=== PATIENT | male | born 1975 | race Caucasian/White ===

== ENCOUNTER 2018-04-19 17:56 | Emergency (ER) | payer MEDICAID ==
[2018-04-19 18:29] VITALS: RESP 18; TEMP 99.4
--- NOTE | 2018-04-19 19:18 | ED PDOC ---
Arrival/HPI - General Historian: Patient - History of Present Illness Narrative History of Present Illness (Text): 04/19/18 19:10 42 year old male with PMH of hypertension, CAD s/p stent placed, diabetes, hypothroidism, hyperlipidemia presents to the Emergency department with headache and elevated blood pressure readings at home 170/100 despite compliance with his medications. Patient reports frontal headache, pressure like, no alleviating or worsening factors. Patient denied associated nausea, vomiting, visual changes, chest pain, shortness of breath, palpitations, cough, leg swelling, muscle weakness, urinary symptoms. Patient is following up with his PMD, last seen last month. His BP meds adjusted with no change in BP reading or the headache. PMD: Dr Delgado Time/Duration: > month Symptom Onset: Gradual Symptom Course: Unchanged Quality: Pressure Context: Home <Carl Nunez - Last Filed: 04/19/18 19:31> - General Historian: Patient - History of Present Illness Symptom Onset: Gradual Symptom Course: Unchanged Quality: Pressure Context: Home <Bull Luke - Last Filed: 04/19/18 22:03> - General Chief Complaint: High Blood Pressure Time Seen by Provider: 04/19/18 18:49 Past Medical History - Provider Review Nursing Documentation Reviewed: Yes - Infectious Disease Hx of Infectious Diseases: None - Cardiac Hx Cardiac Disorders: Yes Hx Hyperlipemia: Yes Hx Hypertension: Yes - Neurological Hx Headaches: Yes - HEENT Hx HEENT Disorder: No - Renal Hx Renal Disorder: No - Endocrine/Metabolic Hx Diabetes Mellitus Type 2: Yes Hx Hypothyroidism: Yes - Integumentary Hx Dermatological Disorder: No - Gastrointestinal Hx Gastrointestinal Disorders: Yes Hx Gastroesophageal Reflux: Yes - Genitourinary/Gynecological Hx Genitourinary Disorders: No - Psychiatric Hx Psychophysiologic Disorder: No Hx Substance Use: No - Anesthesia Hx Anesthesia: No <Carl Nunez - Last Filed: 04/19/18 19:31> Family/Social History - Physician Review Nursing Documentation Reviewed: Yes Family/Social History: No Known Family HX Smoking Status: Unknown If Ever Smoked Hx Alcohol Use: No Hx Substance Use: No <Carl Nunez - Last Filed: 04/19/18 19:31> Allergies/Home Meds <Carl Nunez - Last Filed: 04/19/18 19:31> <Bull Luke - Last Filed: 04/19/18 22:03> Allergies/Adverse Reactions: Allergies No Known Allergies Allergy (Verified 04/19/18 18:29) Home Medications: Home Meds Medication Instructions Recorded Confirmed Aspirin [Ecotrin] 81 mg PO DAILY 04/19/18 04/19/18 Atorvastatin [Lipitor] 20 mg PO DAILY 04/19/18 04/19/18 Cholecalciferol (Vitd3)/Vit K2 [D3 50,000 each PO QWK 04/19/18 04/19/18 + K2 Dots 1,000 Units Tab] Clopidogrel Bisulfate [Plavix] 75 mg PO DAILY 04/19/18 04/19/18 Furosemide [Lasix] 20 mg PO DAILY 04/19/18 04/19/18 Levothyroxine [Synthroid] 0.088 mg PO DAILY 04/19/18 04/19/18 Losartan/Hydrochlorothiazide 1 each PO DAILY 04/19/18 04/19/18 [Losartan-Hctz 100-25 mg Tab] MetFORMIN [glucOPHAGE] 1,000 mg PO BID 04/19/18 04/19/18 Metoclopramide [Reglan] 5 mg PO TID 04/19/18 04/19/18 Metoprolol Tartrate [Lopressor] 25 mg PO BID 04/19/18 04/19/18 Gtuqi-2-Jkal Ethyl Esters [OMEGA 3] 0 mg PO 04/19/18 Ranitidine HCl [Zantac 300] 300 mg PO DAILY 04/19/18 04/19/18 amLODIPine [Norvasc] 5 mg PO DAILY 04/19/18 04/19/18 Review of Systems - Physician Review All systems were reviewed & negative as marked: Yes - Review of Systems Constitutional: Normal. absent: Weight Change, Fevers, Night Sweats Eyes: Normal. absent: Vision Changes, Photophobia ENT: Normal. absent: Hearing Changes, Tinnitus, TMJ Pain Respiratory: Normal Cardiovascular: Normal. absent: Chest Pain, Palpitations, TELLO, Orthopnea Gastrointestinal: Normal Genitourinary Male: Normal. absent: Frequency, Hematuria Musculoskeletal: Normal. absent: Back Pain, Neck Pain Skin: Normal. absent: Rash Neurological: Headache. absent: Dizziness, Focal Weakness, Gait Changes, Speech Changes, Facial Droop, Disequilibrium, Seizure Endocrine: Normal. absent: Diaphoresis, Polyuria, Polydipsia Hemo/Lymphatic: Normal. absent: Adenopathy Psychiatric: Normal <Carl Nunez - Last Filed: 04/19/18 19:31> Physical Exam Vital Signs Reviewed: Yes Vital Signs Temp Pulse Resp BP Pulse Ox 04/19/18 18:25 99.4 F 96 H 18 157/96 H 99 Temperature: Afebrile Blood Pressure: Hypertensive Pulse: Regular Respiratory Rate: Normal Appearance: Positive for: Well-Appearing, Non-Toxic, Comfortable Pain Distress: Moderate Mental Status: Positive for: Alert and Oriented X 3 Finger Stick Blood Glucose: 97 - Systems Exam Head: Present: Atraumatic, Normocephalic Pupils: Present: PERRL Extroacular Muscles: Present: EOMI Conjunctiva: Present: Normal Ears: Present: Normal Mouth: Present: Moist Mucous Membranes Nose (External): Present: Atraumatic Nose (Internal): Present: Normal Inspection Neck: Present: Normal Range of Motion. No: MIDLINE TENDERNESS, JVD Respiratory/Chest: Present: Clear to Auscultation, Good Air Exchange. No: Respiratory Distress, Accessory Muscle Use Cardiovascular: Present: Regular Rate and Rhythm, Normal S1, S2. No: Murmurs, Rub Abdomen: Present: Normal Bowel Sounds. No: Tenderness, Distention Back: Present: Normal Inspection. No: CVA Tenderness Upper Extremity: Present: Normal Inspection. No: Cyanosis, Edema Lower Extremity: Present: Normal Inspection. No: Edema Neurological: Present: GCS=15, CN II-XII Intact, Speech Normal Skin: Present: Warm, Dry, Normal Color. No: Rashes Lymphatic: No: Cervical Adenopathy Psychiatric: Present: Alert, Oriented x 3, Normal Insight, Normal Concentration <Carl Nunez - Last Filed: 04/19/18 19:31> Vital Signs Temp Pulse Resp BP Pulse Ox 04/19/18 18:25 99.4 F 96 H 18 157/96 H 99 <Bull Luke - Last Filed: 04/19/18 22:03> Medical Decision Making ED Course and Treatment: 04/19/18 21:46 Case endorsed from Carl Gonzalez/ Dr. Rcihi Stoll Patient is a 42M w/ hypertensive w/ associated headache + nausea CBC/CMP mild anemia + hypokalemia + BUN/Cr ratio 25/1.3 EKG findings listed below TSH/T4 within normal limits Patient given Reglan KDur Findings suggest patient is dehydrated w/ elevated BUN vs Diabetic Nephropathy Symptoms improved; patient comfortable, voicing no complaints at time of re evaluation 2150 Encourage increased fluid intake Will discharge patient home w/ appropriate follow up w/ PMD Dr. Whiteside - Lab Interpretations Lab Results: Total Bilirubin 0.5 mg/dL (0.2-1.3) 04/19/18 19:59 AST 60 U/L (17-59) H 04/19/18 19:59 ALT 53 U/L (7-56) 04/19/18 19:59 Alkaline Phosphatase 74 U/L (38-126) 04/19/18 19:59 Total Protein 8.5 g/dL (5.8-8.3) H 04/19/18 19:59 Albumin 4.6 g/dL (3.0-4.8) 04/19/18 19:59 Globulin 3.9 gm/dL 04/19/18 19:59 Albumin/Globulin Ratio 1.2 (1.1-1.8) 04/19/18 19:59 Urine Color Yellow (YELLOW) 04/19/18 20:50 Urine Appearance Clear (CLEAR) 04/19/18 20:50 Urine pH 6.0 (4.7-8.0) 04/19/18 20:50 Ur Specific Mccloud 1.025 (1.005-1.035) 04/19/18 20:50 Urine Protein 100 mg/dL (<30 mg/dL) H 04/19/18 20:50 Urine Glucose (UA) Negative mg/dL (NEGATIVE) 04/19/18 20:50 Urine Ketones Negative mg/dL (NEGATIVE) 04/19/18 20:50 Urine Blood Small (NEGATIVE) H 04/19/18 20:50 Urine Nitrate Negative (NEGATIVE) 04/19/18 20:50 Urine Bilirubin Negative (NEGATIVE) 04/19/18 20:50 Urine Urobilinogen 0.2 E.U./dL (<1 E.U./dL) 04/19/18 20:50 Ur Leukocyte Esterase Negative Shama/uL (NEGATIVE) 04/19/18 20:50 Urine RBC 1 - 3 /hpf (0-2) H 04/19/18 20:50 Urine WBC None /hpf (0-6) 04/19/18 20:50 Ur Epithelial Cells None /hpf (0-5) 04/19/18 20:50 - EKG Interpretation EKG Interpretation (Text): 04/19/18 21:51 Sinus rhythm w/ 1st degree EV block Hr [address]/T wave abnormalities appreciated - Medication Orders Current Medication Orders: Discontinued Medications Metoclopramide HCl (Reglan) 10 mg IVP STAT STA Stop: 04/19/18 19:30 Last Admin: 04/19/18 19:49 Dose: 10 mg IVP Administration Document 04/19/18 19:49 EQ (Rec: 04/19/18 19:49 EQ [facility]-ER-20) Charges for Administration # of IVP Administrations 1 Potassium Chloride (K-Dur 20 Meq Er Tab) 40 meq PO STAT STA Stop: 04/19/18 20:41 Last Admin: 04/19/18 20:53 Dose: 40 meq <Bull Luke - Last Filed: 04/19/18 22:03> Disposition/Present on Arrival - Present on Arrival Any Indicators Present on Arrival: No History of DVT/PE: No History of Uncontrolled Diabetes: No Urinary Catheter: No History of Decub. Ulcer: No History Surgical Site Infection Following: None <Carl Nunez - Last Filed: 04/19/18 19:31> - Present on Arrival Any Indicators Present on Arrival: No History of DVT/PE: No History of Uncontrolled Diabetes: No Urinary Catheter: No History of Decub. Ulcer: No History Surgical Site Infection Following: None - Disposition Have Diagnosis and Disposition been Completed?: Yes Disposition Time: 21:59 Patient Plan: Discharge <Bull Luke - Last Filed: 04/19/18 22:03> - Disposition Diagnosis: Hypertension, Nausea, Proteinuria Patient Problems: Current Active Problems Problem Status Onset Hypertension Acute Nausea Acute Proteinuria Acute Condition: STABLE Discharge Instructions (ExitCare): Nausea and Vomiting, Adult (DC), High Blood Pressure (DC) Additional Instructions: Please follow up with your primary care doctor within 1 day of discharge Your lab findings show mild dehydration please increase your fluid intake JADON FRANCO, thank you for letting us take care of you today. Your provider was Jerman Armstrong MD/ Carl Gonzalez DO/ Bull Mckay DO and you were treated for High Blood Pressure. The emergency medical care you received today was directed at your acute symptoms. If you were prescribed any medication, please fill it and take as directed. It may take several days for your symptoms to resolve. Return to the Emergency Department if your symptoms worsen, do not improve, or if you have any other problems. Please contact your doctor or call one of the physicians/clinics you have been referred to that are listed on the Patient Visit Information form that is included in your discharge packet. Bring any paperwork you were given at discharge with you along with any medications you are taking to your follow up visit. Our treatment cannot replace ongoing medical care by a primary care provider outside of the emergency department. Thank you for allowing the [facility] team to be part of your care today. If you had an X-Ray or CT scan: A Radiologist will review the ED reading if any change in treatment is needed we will contact you. If you had a blood, urine, or wound culture: It will take several days for the results, if any change in treatment is needed we will contact you. If you had an STI test: It will take 48 hours for the results. Please call after 1 week if you have not heard back. Referrals: Wiliam Moulton MD [Staff Provider] - Follow up with primary Forms: Nautal (Setswana)
[2018-04-19 20:02] LABS: BASO # 0.01 K/mm3 (0.0-2.0); BASO % 0.2 % (0.0-3.0); EOS # 0.2 (0.0-0.7); EOS % 2.9 % (1.5-5.0); HEMOGLOBIN 11.7 g/dL (14.0-18.0); LYMPH # 1.2 (1.2-3.4); LYMPH % 20.6 % (22.0-35.0); MEAN CELL VOLUME 86.4 fl (80.0-105.0); MEAN CORPUSCULAR HEMOGLOBIN 27.3 pg (25.0-35.0); MEAN CORPUSCULAR HGB CONC 31.6 g/dl (31.0-37.0); MEAN PLATELET VOLUME 10.8 fl (7.0-11.0); MONO # 0.7 (0.1-0.6); MONO % 11.9 % (1.0-6.0); RBC 4.28 10^6/uL (3.5-6.1); RED CELL DISTRIBUTION WIDTH 15.6 % (11.5-14.5); WHITE BLOOD COUNT 5.8 10^3/uL (4.5-11.0)
[2018-04-19 20:16] LABS: ALB/GLOB RATIO 1.2 (1.1-1.8); ALBUMIN 4.6 g/dL (3.0-4.8); ALT/SGPT 53 U/L (7-56); AST/SGOT 60 U/L (17-59); BLOOD UREA NITROGEN 25 mg/dL (7-21); CALCIUM 9.2 mg/dL (8.4-10.5); GFR NON-AFRICAN AMERICAN > 60
[2018-04-19 20:33] LABS: FREE T4 1.24 ng/dL (0.78-2.19)
[2018-04-19] MEDS ORDERED: Potassium Chloride 20 mEq ER Tab PO STA (20:40)
[2018-04-19 21:04] LABS: URINE APPEARANCE CLEAR (CLEAR); URINE BILIRUBIN NEGATIVE (NEGATIVE); URINE BLOOD SMALL (NEGATIVE); URINE COLOR YELLOW (YELLOW); URINE GLUCOSE (UA) NEGATIVE (NEGATIVE); URINE LEUKOCYTE ESTERASE NEGATIVE Leu/uL (NEGATIVE); URINE PROTEIN 100 mg/dL (<30 mg/dL); URINE UROBILINOGEN 0.2 E.U./dL (<1 E.U./dL)
[2018-04-19 22:03] VITALS: BP 145/81; PULSE 85; O2SAT 98
--- NOTE | 2018-04-20 16:37 | CARD ---
APPROVED REPORT Date of service: 04/19/2018 EKG Measurement Heart [id number] <Conclusion> Sinus rhythm with 1st degree AV block Left ventricular hypertrophy with repolarization abnormality Abnormal ECG
== END 2018-04-19 22:09 | disposition home or self-care (01) ==
LOC: EDSEX → ED 17:56
DX: I10 Essential (primary) hypertension (principal); R80.9 Proteinuria, unspecified; R11.0 Nausea; I25.10 Atherosclerotic heart disease of native coronary artery without angina pectoris; E11.9 Type 2 diabetes mellitus without complications; E78.5 Hyperlipidemia, unspecified; Z95.5 Presence of coronary angioplasty implant and graft
CPT/HCPCS: 80053; 81001; 82948; 83735; 84100; 84439; 84443; 85025; 93005; 96374; 99283; J2765